=== PATIENT | female | born 1995 | race Caucasian/White ===

== ENCOUNTER 2020-01-17 09:52 | Emergency (ER) | payer BC, SELFPAY ==
--- NOTE | ~2020-01-17 | CT_ITS ---
EXAMINATION: CT abdomen pelvis w con DATE: 01/17/2020 11:36 INDICATION: Right flank pain. TECHNIQUE: Computed tomography (CT) of the abdomen and pelvis was performed with 100 mL Omnipaque 350 intravenous contrast. Automated exposure control and iterative reconstruction technique were employe d. The dose-length product was 635.49 mGy-cm. COMPARISON: CT abdomen and pelvis 07/03/2013 FINDINGS: The visualized portions of the lung bases are clear without pneumonia or pleural effusion. The heart size is normal. No pericardial effusion. The liver, gallbladder, spleen, pancreas, adrenal glands, and kidneys are normal. There are no dilated loops of bowel. The appendix is normal. There ar e no pathologically enlarged lymph nodes. There is no free intraperitoneal fluid. The bones are unrem arkable. IMPRESSION: 1. No etiology for the patient's symptoms. Reviewed, dictated and finalized at location A.
[2020-01-17 09:51] VITALS: BP 129/90; PULSE 89; RESP 16; TEMP 36.8; O2SAT 97
--- NOTE | 2020-01-17 10:03 | ED.ABDPAIN ---
HPI - Abdominal Pain General Chief Complaint: Abdominal Pain Stated Complaint: RT FLANK PAIN Source: RN notes reviewed History of Present Illness HPI narrative: Patient presents emergency department from home for right flank pain. Patient states pain began yesterday and worsened today. Pain is located in the right flank and does not radiate described as sharp and stabbing. Worse with movement. Associated with nausea. States she took Tylenol this morning with minimal relief. Denies any fevers or chills chest pain shortness of breath abdominal pain vomiting diarrhea or any other symptoms Related Data Home Medications Medication Instructions Recorded Confirmed etonogestrel-ethinyl estradiol 1 vag ring VAGINAL ONCE 01/17/20 [NuvaRing] Allergies Allergy/AdvReac Type Severity Reaction Status Date / Time No Known Allergies Allergy Verified 01/17/20 09:55 Review of Systems Review of Systems: Narrative: Gen.: Denies fevers or chills ENT: Denies congestion Respiratory: Denies shortness of breath or cough CV: Denies chest pain or palpitations GI: Denies abdominal pain nausea, emesis or diarrhea, reports flank pain denies burning, urgency, frequency or hematuria Musculoskeletal: Denies back pain or muscle pain Neuro: Denies numbness, tingling, weakness or focal weakness Skin: Denies rash Except as documented, all other systems reviewed and negative [facility] Past Medical History Medical History (Updated 01/17/20 @ 12:55 by John Haro DO) Patient denies significant medical history Social History Social History (Updated 01/17/20 @ 10:04 by John Haro DO) Smoking status: Never smoker Exam Narrative: Exam Narrative: APPEARANCE: No acute distress, nontoxic, resting in bed EYES: EOMI HEENT: Normocephalic, atraumatic, OMM RESPIRATORY: No respiratory distress Clear to auscultation bilaterally with no rhonchi wheezing or rales. CARDIOVASCULAR: Regular rate and rhythm without murmurs rubs or gallops. ABDOMINAL: Soft, nondistended, tender palpation right upper quadrant, no tenderness right lower quadrant, left lower quadrant left upper quadrant no rebound or guarding, right flank tenderness worse with rotation of the torso no overlying erythema MUSCULOSKELETAl: Moves all extremities. No clubbing, cyanosis or edema. NEURO: Awake and alert. Following commands, speech normal, no focal deficits SKIN:: Warm, dry. No rashes lesions or abrasions PSYCHIATRIC: Normal affect/mood, Course Course Emergency Course: Patient states that they are feeling much better at this time. States abdominal pain has resolved. Repeat abdominal exam shows the patient's abdomen to be soft and nontender. Discussed with patient results of workup and diagnosis. Discussed need for follow-up with primary care physician, reasons to return to the emergency department in proper use of medication. Patient understands and agrees to current treatment plan Vital Signs Vital signs: Vital Signs Temperature 98.2 F 01/17/20 09:51 Pulse Rate 89 01/17/20 09:51 Respiratory Rate 16 01/17/20 09:51 Blood Pressure 129/90 01/17/20 09:51 Pulse Oximetry 97 01/17/20 09:51 Temperature 98.2 F 01/17/20 09:51 Pulse Rate 89 01/17/20 09:51 Respiratory Rate 16 01/17/20 09:51 Blood Pressure 129/90 01/17/20 09:51 Pulse Oximetry 97 01/17/20 09:51 MDM - Abdominal Pain MDM Narrative Medical decision making narrative: Patient's abdomen is soft without significant pain or signs of surgical abdomen on serial exams. Lab and x-ray evaluations are reviewed and patient is felt to be a reasonable candidate for outpatient management. Patient was instructed as to limitations of x-ray and laboratory evaluation and encouraged to return to ED or primary physician for repeat exam in 12 hours if continued or worsening pain Lab Data Result diagrams: 01/17/20 10:16 01/17/20 10:16 Labs: Lab Results 01/17/20 01/17/20
[2020-01-17] MEDS: SODIUM CHLORIDE 0.9% IV 1,000 ML 999 ML IV CONT (10:19)
[2020-01-17] MEDS: KETOROLAC 30 MG/ML VIAL (*BKC) IV PUSH (10:19)
[2020-01-17 10:32] LABS: Basophils Percent Auto 0.3 % (0.2-1.2); Eosinophils Absolute Auto 0.2 K/mm3 (0-0.3); Eosinophils Percent Auto 3.1 % (0-4.4); Hematocrit 39.7 % (37.0-47.0); Hemoglobin 13.4 g/dL (12.0-15.0); Immature Granulocyte Absolute 0.02 K/mm3 (0.00-0.031); Immature Granulocyte Percent A 0.3 % (0-0.5); Lymphocytes Absolute Auto 2.76 K/mm3 (0.9-3.2); Lymphocytes Percent Auto 39.4 % (18.3-44.2); Mean Corpuscular HGB Conc 33.8 g/dl (32-36); Mean Corpuscular Hemoglobin 30.7 pg (26-34); Mean Corpuscular Volume 90.8 fl (80-100); Mean Platelet Volume 10.2 fl (7.4-10.4); Monocytes Absolute Auto 0.5 K/mm3 (0.1-0.6); Monocytes Percent Auto 7.6 % (2.6-8.5); Neutrophils Absolute Auto 3.5 K/mm3 (1.3-6.7); Neutrophils Percent Auto 49.3 % (45.5-73.1); Platelet Count Result 303 k/mm3 (150-375); Red Blood Count 4.37 M/mm3 (4.2-5.4); Red Cell Distribution Width 12.1 % (11.5-14.5)
[2020-01-17 10:36] LABS: Add Urine Microscopic? NO; Appearance Urine Clear (Clear); Bilirubin Urine Negative (Negative); Blood Urine Negative (Negative); Color Urine Yellow (Yellow); Glucose Urine UA Negative (Negative); Ketones Urine Negative (Negative); Leukocyte Esterase Ur Negative LEU/UL (Negative); Nitrate Urine Negative (Negative); Protein Urine Negative (Negative); Specific Grav Ur 1.028 (1.001-1.035); Urobilinogen Urine Negative mg/dL (<2.0)
[2020-01-17 10:44] LABS: Alanine Aminotransferase 28 U/L (4-35); Albumin Level 4.4 g/dL (3.5-5.1); Alkaline Phosphatase 87 U/L (38-126); Anion Gap 8 mmol/L (8-16); Aspartate Amino Transferase 24 U/L (14-36); Bilirubin,Total 0.4 mg/dL (0.2-1.3); Blood Urea Nitrogen 15 mg/dL (7-17); Calcium 9.3 mg/dL (8.4-10.2); Carbon Dioxide 23 mmol/L (22-30); Chloride 105 mmol/L (98-107); Estimated CRCL calculation 126 ml/min; Estimated Glomerular Filt Rate > 60; Glucose 95 mg/dL (65-105); Lipase 77 U/L (23-300); Potassium 4.1 mmol/L (3.4-5.0); Sodium 136 mmol/L (137-145)
[2020-01-17 11:17] LABS: D Dimer < 0.22 ug/mL (<0.48)
[2020-01-17] MEDS: MORPHINE SULFATE 4 MG/ML INJ IV PUSH (12:26)
--- NOTE | 2020-01-17 12:44 | PC.NURSE ---
edp at bedside to discuss test results
[2020-01-17 13:14] VITALS: BP 117/82; PULSE 83; RESP 14; O2SAT 97
== END 2020-01-17 13:14 | disposition home or self-care (01) ==
PROVIDERS: Emergency Provider Emergency Medicine
DX: R10.9 Unspecified abdominal pain (principal)
CPT/HCPCS: 36415; 74177; 80053; 81003; 81025; 83690; 85025; 85380; 96361; 96374; 96375; 99284; J1885; J2270; J7030; Q9967

== ENCOUNTER → 2022-01-23 13:38 | Outpatient (CLI) | payer BC, SELFPAY ==
--- NOTE | ~2022-01-23 | XR_ITS ---
EXAMINATION: XR finger 2nd RT min 2V DATE: 01/23/2022 13:58 INDICATION: Nail injury after being bit by dog 3 weeks prior TECHNIQUE: Dorsal palmar, lateral and 2 oblique views of the right second digit were obtained COMPARISON: None FINDINGS: Loss of a portion of the fingernail at the right second digit. There is interruption of the underlyin g dorsal cortex at the mid to distal aspect of the distal phalanx with linear tract of increased luce ncy extending obliquely into the diaphysis. Differential would include nondisplaced subacute fracture or erosion related to osteomyelitis although would favor the latter. Remaining bones are unremarkabl e with normal alignment and no other lesions concerning for fracture or osteolytic myelitis. Joint sp aces are normal. IMPRESSION: 1. Abnormality appears to the right second distal phalanx most suggestive of osteomyelitis versus les s likely nondisplaced subacute fracture with secondary resorptive changes. Reviewed, dictated and finalized at location A. IMPRESSION: 1. Abnormality appears to the right second distal phalanx most suggestive of os teomyelitis versus less likely nondisplaced subacute fracture with secondary re sorptive changes.
== END ==
PROVIDERS: PCP Plastic Surgery; Visit Provider Plastic Surgery
DX: S62.661A Nondisplaced fracture of distal phalanx of left index finger, initial encounter for closed fracture (principal); X58.XXXA Exposure to other specified factors, initial encounter
CPT/HCPCS: 73140

== ENCOUNTER → 2022-02-19 14:44 | Outpatient (CLI) | payer BC, SELFPAY ==
--- NOTE | ~2022-02-19 | XR_ITS ---
XR finger 2nd RT min 2V 02/19/2022 15:26 Indication: Dog bite to finger. Evaluate for osteomyelitis. Procedure: 3 views right second finger Comparison: 01/23/2022 Findings: There is a healing fracture of the right second distal phalanx. Moderate overlying soft tis enrrique swelling with irregularity to the nailbed. No discrete osteolytic defects are identified. No sign ificant periosteal reaction. Impression: 1: Healing fracture of the right second distal phalanx. No definite evidence for acute osteomyelitis. If there is continued concern for osteomyelitis, further evaluation with MRI is recommended. Reviewed, dictated and finalized at location A. Impression: 1: Healing fracture of the right second distal phalanx. No definite evidence fo r acute osteomyelitis. If there is continued concern for osteomyelitis, further evaluation with MRI is recommended.
== END ==
PROVIDERS: PCP Plastic Surgery; Visit Provider Plastic Surgery
DX: S62.630A Displaced fracture of distal phalanx of right index finger, initial encounter for closed fracture (principal); X58.XXXA Exposure to other specified factors, initial encounter
CPT/HCPCS: 73140

== ENCOUNTER 2023-06-09 18:58 | Emergency (ER) | payer OTHER, SELFPAY ==
--- NOTE | ~2023-06-09 | US_ITS ---
CORRECTED REPORT corrected examination description [facility] [place] 06/10/23 This report was recreated on 06/10/23. Original report was CONSTRUCTION EXAMINATION: US OB <= 14 weeks fetus w TV DATE: 06/09/2023 21:19 INDICATION: Vaginal bleeding. TECHNIQUE: Real-time transabdominal and transvaginal pelvic ultrasound was performed. COMPARISON: None. FINDINGS: TRANSABDOMINAL ULTRASOUND: The uterus measures 8.9 x 5.5 x 7.8 cm. TRANSVAGINAL ULTRASOUND: There is an intrauterine gestational sac. The crown rump length measures 1.4 cm, which correlates with an estimated gestational age of 8 weeks and 4 day(s) (+/-) 4 day(s). heart motion is not identified. The right ovary measures 2.3 x 3.1 x 2.0 cm. The left ovary is not visualized. There is no free fluid in the pelvis. IMPRESSION: 1. demise. Reviewed, dictated and finalized at location E. CONSTRUCTION MTDD IMPRESSION: 1. demise.
[2023-06-09 21:24] LABS: Basophils Percent Auto 0.3 % (0.2-1.2); Eosinophils Absolute Auto 0.1 K/mm3 (0-0.3); Eosinophils Percent Auto 0.8 % (0-4.4); Hemoglobin 13.2 g/dL (12.0-15.0); Immature Granulocyte Absolute 0.04 K/mm3 (0.00-0.031); Immature Granulocyte Percent A 0.3 % (0-0.5); Lymphocytes Absolute Auto 4.71 K/mm3 (0.9-3.2); Lymphocytes Percent Auto 34.2 % (18.3-44.2); Mean Corpuscular HGB Conc 32.2 g/dl (32-36); Mean Corpuscular Hemoglobin 30.2 pg (26-34); Mean Corpuscular Volume 93.8 fl (80-100); Mean Platelet Volume 10.2 fl (7.4-10.4); Monocytes Absolute Auto 0.9 K/mm3 (0.1-0.6); Monocytes Percent Auto 6.3 % (2.6-8.5); Neutrophils Percent Auto 58.1 % (45.5-73.1); Platelet Count Result 335 k/mm3 (150-375); Red Blood Count 4.37 M/mm3 (4.2-5.4); Red Cell Distribution Width 12.2 % (11.5-14.5); White Blood Count 13.8 K/mm3 (4.5-10.0)
[2023-06-09 21:30] LABS: Alanine Aminotransferase 21 U/L (6-35); Albumin Level 4.5 g/dL (3.5-5.1); Alkaline Phosphatase 78 U/L (38-126); Anion Gap 10 mmol/L (8-16); Aspartate Amino Transferase 20 U/L (14-36); Bilirubin,Total 0.4 mg/dL (0.2-1.3); Blood Urea Nitrogen 12 mg/dL (7-17); Calcium 9.4 mg/dL (8.4-10.2); Carbon Dioxide 26 mmol/L (22-30); Chloride 102 mmol/L (98-107); Estimated CRCL calculation 148 ml/min; Estimated Glomerular Filt Rate > 60; Glucose 88 mg/dL (65-110); Potassium 3.8 mmol/L (3.4-5.0); Sodium 138 mmol/L (137-145)
--- NOTE | 2023-06-09 22:47 | ED.GENADULT ---
HPI - General Adult General Chief complaint: Vaginal Bleeding Stated complaint: vaginal bleeding Time Seen by Provider: 06/09/23 22:20 History of Present Illness HPI narrative: patient 27-year-old female who presents emergency department with chief complaint of vaginal bleeding. patient reports she started having bleeding around 130 this afternoon and passing clots around 230 and has had change a pad twice totaling since the beginning of the symptoms. Patient reports that she had an ultrasound approximately a weeks that did show some abnormalities but still had cardiac activity at that time. Patient reports this is her 1st and reports that she is Rh positive. Related Data Home Medications Medication Instructions Recorded Confirmed etonogestrel 0.12 mg-ethinyl 1 vag ring vaginal ONCE 01/17/20 estradiol 0.015 mg/24 hr vaginal ring (NuvaRing) Allergies Allergy/AdvReac Type Severity Reaction Status Date / Time No Known Allergies Allergy Verified 01/17/20 09:55 Review of Systems Review of Systems: A 10 system review of systems was completed on the patient and is negative except for what is stated in the HPI. Nursing and ancillary documentation was reviewed. PMFSH Past Medical History Medical History Patient denies significant medical history Social History Social History Smoking status: Never smoker Exam Narrative: GENERAL: Well-appearing, well-nourished, and in no acute distress. HEAD: Normocephalic, atraumatic. EYES: PERRLA and EOMI. ENT: Nares clear, no rhinorrhea or epistaxis. Mucous membranes moist. NECK: Supple. CHEST: Clear to auscultation. No respiratory distress. HEART: Regular rate and rhythm. No murmur heard. Normal peripheral pulses. ABDOMEN: Soft, nontender, nondistended, normal active bowel sounds. EXTREMITIES: Normal range of motion. No edema. SKIN: Warm, dry, no rash. NEURO: No focal deficits. Alert and oriented x3. PSYCH: Normal mood and affect. Medical Decision Making MDM Narrative Medical decision making narrative: Differential diagnosis includes threatened miscarriage, incomplete miscarriage laboratory studies were obtained on the patient showed CBC with a white count of 13.8 hemoglobin was 13.2 electrolytes are within normal limits the patient is A positive TRANSVAGINAL ULTRASOUND: There is an intrauterine gestational sac. The crown rump length measures 1.4 cm, which correlates with an estimated gestational age of 8 weeks and 4 day(s) (+/-) 4 day(s). heart motion is not identified. The right ovary measures 2.3 x 3.1 x 2.0 cm. The left ovary is not visualized. There is no free fluid in the pelvis. IMPRESSION: 1.? demise. patient was counseled to the findings of the ultrasound and was instructed to expectant management of miscarriage the patient follow-up with her OBGYN for our OBGYN in the next 2-3 days and should return to the emergency department if she has worsening symptoms. Lab Data 06/09/23 21:10 06/09/23 21:10 Labs: Lab Results 06/09/23 Range/Units 21:10 WBC 13.8 H (4.5-10.0) K/mm3 RBC 4.37 (4.2-5.4) M/mm3 Hgb 13.2 (12.0-15.0) g/dL Hct 41.0 (37.0-47.0) % MCV 93.8 (80-100) fl MCH 30.2 (26-34) pg MCHC 32.2 (32-36) g/dl RDW 12.2 (11.5-14.5) % Plt Count 335 (150-375) k/mm3 MPV 10.2 (7.4-10.4) fl Immature Gran % (Auto) 0.3 (0-0.5) % Neut % (Auto) 58.1 (45.5-73.1) % Lymph % (Auto) 34.2 (18.3-44.2) % [place] % (Auto) 6.3 (2.6-8.5) % Eos % (Auto) 0.8 (0-4.4) % Baso % (Auto) 0.3 (0.2-1.2) % Lymph # (Auto) 4.71 H (0.9-3.2) K/mm3 [place] # (Auto) 0.9 H (0.1-0.6) K/mm3 Eos # (Auto) 0.1 (0-0.3) K/mm3 Baso # (Auto) 0.0 (0.0-0.1) K/mm3 Abs Immat Gran (auto) 0.04 H (0.00-0.031) K/mm3 Absolute Neuts (a
[2023-06-09 23:24] VITALS: BP 135/95; PULSE 98; RESP 16; O2SAT 97
== END 2023-06-09 23:28 | disposition home or self-care (01) ==
PROVIDERS: Student in an Organized Health Care Education/Training Program; Emergency Provider Emergency Medicine
DX: O02.1 Missed abortion (principal)
CPT/HCPCS: 36415; 76801; 76817; 80053; 85025; 86850; 86900; 86901; 99284